=== PATIENT | male | born 1955 | race Caucasian/White ===

== ENCOUNTER 2019-02-19 22:13 | Emergency (ER) | payer OTHER ==
--- OUTSIDE RECORDS SUMMARY | 2019-02-19 22:15 | XMS REPORT ---
:1955 Author Organization [employer] Care Team Providers Name Role Phone Dena Walker Provider Role Unavailable Allergies, Adverse Reactions, Alerts Substance Reaction Event Type N.K.D.A. Info Not Available Non Drug Allergy Problems Problem Type Condition Code Onset Dates Condition Status Assessment History of CVA with residual I69.30 Active deficit Assessment Vitamin D deficiency E55.9 Active Assessment Irritable bowel syndrome with both K58.2 Active constipation and diarrhea Assessment Chronic obstructive pulmonary J44.9 Active disease, unspecified COPD type Assessment Hyperlipidemia, unspecified E78.5 Active hyperlipidemia type Problem Vitamin D deficiency E55.9 Active Assessment Hyperglycemia R73.9 Active Problem H/O heart artery stent Z95.5 Active Assessment H/O heart artery stent Z95.5 Active Problem Chronic obstructive pulmonary J44.9 Active disease, unspecified COPD type Problem History of permanent cardiac Z95.0 Active pacemaker placement Problem History of CVA with residual I69.30 Active deficit Problem Depression screening Z13.31 Active Problem Cardiovascular disease I25.10 Active Assessment Prostate cancer screening Z12.5 Active Assessment History of permanent cardiac Z95.0 Active pacemaker placement Problem Irritable bowel syndrome with both K58.2 Active constipation and diarrhea Assessment 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 Problem Stroke I63.9 Active Problem IBS (irritable bowel syndrome) K58.9 Active Problem Hyperlipidemia E78.5 Active Problem Hypertension I10 Active Problem Hemiparesis, unspecified G81.90 Active hemiparesis etiology, unspecified laterality Assessment Need for influenza vaccination Z23 Active Assessment Hypertension, unspecified type I10 Active Problem Hyperlipidemia, unspecified E78.5 Active hyperlipidemia type Problem Hyperglycemia R73.9 Active Problem Hypertension, unspecified type I10 Active Problem 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 Medications Medication Code Code Instructions Start End Status Dosage System Date Date Clopidogrel [facility] 46074583810 75 MG Orally Active 1 tablet Bisulfate Once a day Atorvastatin [facility] 56938467068 80 MG Orally Active 1 tablet in Calcium Once a day evening Amoxicillin-Pot [facility] 18271812703 875-125 MG Active 1 tablet Clavulanate Orally Twice a day x10 days Tessalon Len [facility] 78221171670 100 MG Orally Active 1 capsule Three times a as needed day Bentyl [facility] 53521628847 10 MG Orally Active 2 capsules Once a day Losartan [facility] 51028405062 100 mg Orally Active 1 tablet Potassium Once a day Isosorbide ND 33077284470 30 MG Orally Active 1 tablet in Mononitrate ER Once a day the morning Fluticasone-[place] ND 23891008919 250-50 MCG/DOSE July 02, Active 1 puff eterol Inhalation 2018 Twice a day Advair Diskus ND 95646237104 250-50 MCG/DOSE Dec 03, Active 1 puff Inhalation 2018 Twice a day ProAir HFA [facility] 79977334110 108 (90 Base) Active 2 puffs as MCG/ACT needed for Inhalation sob/wheezin every 4-6 hrs g Breo Ellipta [facility] 07764996793 100-25 MCG/INH Active 1 puff Inhalation Once a day Vitamin D3 [facility] 30368297073 1000 UNIT Active 1-2 tablets Orally Once a (otc) day Losartan ND 57415657754 100 MG Orally Active 1 tablet Potassium Once a day Metoprolol [facility] 70266290397 50 MG Orally Active 1 tablet Tartrate Twice a day with food Aspirin [facility] 94674555050 325 MG Orally Active 1 tablet Once a day Results No Known Results Immunizations Vaccine Administration Date FLUZONE HIGH DOSE OVER 65 Dec 03, 2018 Summary Purpose [employer] Submission
[2019-02-19] MEDS ORDERED: NA CHLORIDE 0.9% 1,000 ML ONE (22:44)
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
[2019-02-19 23:45] LABS: Basophils % 0.7 % (0-1.3); Lymphocytes % 9.5 % (15.3-44.8); MPV 8.4 fL (7.6-11.3)
[2019-02-19 23:57] LABS: Bilirubin Direct 0.2 mg/dL (0-0.2); Bilirubin Total 0.8 mg/dL (0.2-1.0); Protein, Total 7.8 g/dL (6.4-8.2)
[2019-02-20 00:33] LABS: Urine Blood NEGATIVE (NEG); Urine Glucose NEGATIVE (NEG); Urine Protein NEGATIVE (NEG)
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
[2019-02-20 01:16] VITALS: O2SAT 97
[2019-02-20 01:18] VITALS: BP 171/99
== END 2019-02-20 00:56 | disposition home or self-care (01) ==
LOC: ER 22:13
DX: S00.33XA Contusion of nose, initial encounter (principal); S32.029A Unspecified fracture of second lumbar vertebra, initial encounter for closed fracture; S32.019A Unspecified fracture of first lumbar vertebra, initial encounter for closed fracture; R04.0 Epistaxis; V43.52XA Car driver injured in collision with other type car in traffic accident, initial encounter; W22.11XA Striking against or struck by driver side automobile airbag, initial encounter; Y93.89 Activity, other specified; Y92.410 Unspecified street and highway as the place of occurrence of the external cause
CPT/HCPCS: 96361; 85025; 80048; 36415; 86900; 86850; 86901; 80076; 81003; 83690; 70450; 72125; 71260; 70486; 76377; 74177; 96360; 99284; Q9967; J7030

== ENCOUNTER 2022-05-13 11:15 | Emergency (ER) | payer MEDICARE ==
--- OUTSIDE RECORDS SUMMARY | 2022-05-13 11:19 | XMS REPORT | Continuity of Care Document ---
:1955 Author Organization [facility] Address [address] [place] [address] [address] [place] [address] Care Team Providers Name Role Phone Estefania Handy Attending Clinician Unavailable Dena Walker Attending Clinician Unavailable Lena Echeverria Attending Clinician Tran Attending Clinician Unavailable Rios Maurice Attending Clinician KAYLENE_Ananth Attending Clinician Unavailable FARNAZ GONZALEZ M.D. Attending Clinician Unavailable Tran Admitting Clinician Unavailable LUZ MARIA Admitting Clinician Unavailable Payers Payer Name Policy Type Policy Effective Date Expiration Date Sour ce Number [facility] [id number] 2021 (MEDICARE 00:00:00 REPLACEMENT HMO) MEDICARE NOVITAS MB [id number] 2010 [facility] - [facility] HUMANA MEDICARE C1 [id number] [facility] brayan - [facility] Problems Condition Condition Condition Status Onset Resolution Last Treating Co mments Source Name Details Category Date Date Treatment Clinician Date Neck pain Neck pain Problem Active [facility] Low back Low back Problem Active [facility] pain pain Physici ans Herniated Herniated Problem Active [facility] nucleus nucleus Physici pulposus pulposus ans of of lumbosacra lumbosacra l region l region Cervical Cervical Problem Active [facility] spine spine Physici degenerati degenerati an s on on Needs Need for Problem Common influenza influenza Spir it immunizati vaccinatio - [facility] on n [facility] [id number] History of Problem Co mmon permanent [facility] cardiac - [facility] pacemaker [facility] [id number] Vitamin D Problem Comm on deficiency Spirit - [facility] [id number] Chronic Problem Common obstructiv [facility] e - [facility] pulmonary [facility] unspecifie Medica l d COPD Center type [id number] H/O heart Problem Com mon artery [facility] stent - [facility] [id number] 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 [id number] Facial Problem Commo n 06 skin [facility] lesion - [facility] Stroke Stroke Problem Common [facility] Hemiparesi Problem Com mon s, Spirit unspecifie - [facility] Center unspecifie d laterality [id number] Eye exam Problem [place] [id number] normal [facility] [id number] Hyperglyce Problem Com mon annaebl [facility] [id number] Essential Problem Comm on hypertensi Spirit on [facility] [id number] Other Problem Common chronic [facility] pain [facility] [id number] Elevated Problem Comm on alkaline Spirit phosphatas - [facility] e level [facility] [id number] Hypermagne Problem Com mon semia [facility] [id number] Memory Problem Common deficit [facility] Allergies, Adverse Reactions, Alerts This patient has no known allergies or adverse reactions. Social History Social Habit Start Date Stop Date Quantity Comments Source History of Tobacco Use Co mmon [facility] Sex Assigned At Com mon [facility] Smoking Status Start Date Stop Date Source Former Smoker 2021-07-06 00:00:00 2021-07-06 00:00:00 [facility] - [facility] Medications Ordered Filled Start Stop Current Ordering Indication Dosage Frequency Signature Comments Components Source Medication Medication Date Date Medication? Clinician (SIG) Name Name Hydrocortis Hydrocortis No QD Hydrocorti one 2.5 % one 2.5 % 10-28 sone 2.5 % 00:00: 00 Hydrocortis Hydrocortis No QD Hydrocorti one 2.5 % one 2.5 % 10-28 sone 2.5 % 00:00: 00 Hydrocortis Hydrocortis No QD Hydrocorti one 2.5 % one 2.5 % 10-28 sone 2.5 % 00:00: 00 Hydrocortis Hydrocortis No QD Hydrocorti one 2.5 % one 2.5 % 10-28 sone 2.5 % 00:00: 00 Hydrocortis Hydrocortis No QD Hydrocorti one 2.5 % one 2.5 % 10-28 sone 2.5 % 00:00: 00 Hydrocortis Hydrocortis No QD Hydrocorti one 2.5 % one 2.5 % 10-28 sone 2.5 % 00:00: 00 Hydrocortis Hydrocortis No QD Hydrocorti one 2.5 % one 2.5 % 10-28 sone 2.5 % 00:00: 00 Hydrocortis Hydrocortis No QD Hydrocorti one 2.5 % one 2.5 % 10-28 sone 2.5 % 00:00: 00 Hydrocortis Hydrocortis No QD Hydrocorti one 2.5 % one 2.5 % 10-28 sone 2.5 % 00:00: 00 Hydrocortis Hydrocortis 0 2020- No Dena 1 Common one one 10-28 [facility] applicatio Spi rit 00:00: 00:00 n applied - [facility] 00 :00 to [facility] Plavix Plavix Yes Dena 1 tablet Comm on 820 [facility] 00:00: - [facility] 00 [facility] Plavix 75 Plavix 75 0 No 1{table QD Plavix 75 MG MG 8-20 t} MG 00:00: 00 Plavix 75 Plavix 75 2020-0 No 1{table QD Plavix 75 MG MG 8-20 t} MG 00:00: 00 Plavix 75 Plavix 75 2020-0 No 1{table QD Plavix 75 MG MG 8-20 t} MG 00:00: 00 Plavix 75 Plavix 75 2020-0 No 1{table QD Plavix 75 MG MG 8-20 t} MG 00:00: 00 Plavix 75 Plavix 75 2020-0 No 1{table QD Plavix 75 MG MG 8-20 t} MG 00:00: 00 Plavix 75 Plavix 75 2020-0 No 1{table QD Plavix 75 MG MG 8-20 t} MG 00:00: 00 Plavix 75 Plavix 75 2020-0 No 1{table QD Plavix 75 MG MG 8-20 t} MG 00:00: 00 Plavix 75 Plavix 75 2020-0 No 1{table QD Plavix 75 MG MG 8-20 t} MG 00:00: 00 Plavix 75 Plavix 75 2020-0 No 1{table QD Plavix 75 MG MG 8-20 t} MG 00:00: 00 tiZANidine tiZANidine 2019-0 Yes FARNAZ Q0.5D TAKE 1 UT HCl - 6 MG HCl - 6 MG 4-21 CUPIC M.D. CAPSULE Physici Oral Oral 00:00: TWICE ans Capsule Capsule 00 DAILY NEEDED. Tessalon Tessalon 2019-0 2020- No Dena 1 capsule Common Perles Perles 3-23 12-18 [facility] as needed [facility] 00:00: 00:00 - [facility] 00 :00 [facility] methylPREDN methylPREDN 2019-0 Yes FARNAZ TAKE UT ISolone 4 ISolone 4 1-16 CUPIC M.D. DIRECTED Physici MG Oral MG Oral 00:00: FOR 6 DAYS a ns Tablet Tablet 00 Therapy Therapy Pack Pack Nabumetone Nabumetone 2019-0 Yes FARNAZ TAKE ONE UT 750 MG Oral 750 MG Oral 1-16 CUPIC M.D. TABLET Physici Tablet Tablet 00:00: TWICE A ans 00 DAY WITH FOOD AFTER MEDROL FINISHED Baclofen 10 Baclofen 10 2019-0 Yes FARNAZ TAKE 1 UT MG Oral MG Oral 1-16 CUPIC M.D. TABLET BY Physici Tablet Tablet 00:00: MOUTH ans 00 TWICE DAILY Amlodipine Amlodipine 2020-0 Yes Dena 1 tablet Common Besylate Besylate 1-15 [facility] Sp brayan 00:00: - [facility] 00 [facility] Advair Advair 2018-02 Yes Dena 1 puff Common Diskus Diskus 0-07 [facility] 00:00: - [facility] 00 [facility] Advair Advair 2018-02 No 1{puff} BID Advair Diskus Diskus 0-07 Diskus 250-50 250-50 00:00: 250-50 MCG/DOSE MCG/DOSE 00 MCG/DOSE Advair Advair 2018-02 No 1{puff} BID Advair Diskus Diskus 0-07 Diskus 250-50 250-50 00:00: 250-50 MCG/DOSE MCG/DOSE 00 MCG/DOSE Advair Advair 2018-02 No 1{puff} BID Advair Diskus Diskus 0-07 Diskus 250-50 250-50 00:00: 250-50 MCG/DOSE MCG/DOSE 00 MCG/DOSE Advair Advair 2018-02 No 1{puff} BID Advair Diskus Diskus 0-07 Diskus 250-50 250-50 00:00: 250-50 MCG/DOSE MCG/DOSE 00 MCG/DOSE Advair Advair 2018-02 No 1{puff} BID Advair Diskus Diskus 0-07 Diskus 250-50 250-50 00:00: 250-50 MCG/DOSE MCG/DOSE 00 MCG/DOSE Advair Advair 2018-02 No 1{puff} BID Advair Diskus Diskus 0-07 Diskus 250-50 250-50 00:00: 250-50 MCG/DOSE MCG/DOSE 00 MCG/DOSE Advair Advair 2018-02 No 1{puff} BID Advair Diskus Diskus 0-07 Diskus 250-50 250-50 00:00: 250-50 MCG/DOSE MCG/DOSE 00 MCG/DOSE Advair Advair 2018-02 No 1{puff} BID Advair Diskus Diskus 0-07 Diskus 250-50 250-50 00:00: 250-50 MCG/DOSE MCG/DOSE 00 MCG/DOSE Advair Advair 2018-02 No 1{puff} BID Advair Diskus Diskus 0-07 Diskus 250-50 250-50 00:00: 250-50 MCG/DOSE MCG/DOSE 00 MCG/DOSE Fluticasone Fluticasone 2019-0 Yes Dena 1 puff Common -Salmeterol -Salmeterol 5-06 [facility] 00:00: - [facility] 00 [facility] Fluticasone Fluticasone 2019-0 No 1{puff} BID Fluticason -Salmeterol -Salmeterol 5-06 e-Salmeter 250-50 250-50 00:00: ol 250-50 MCG/DOSE MCG/DOSE 00 MCG/DOSE Fluticasone Fluticasone 2019-0 No 1{puff} BID Fluticason -Salmeterol -Salmeterol 5-06 e-Salmeter 250-50 250-50 00:00: ol 250-50 MCG/DOSE MCG/DOSE 00 MCG/DOSE Fluticasone Fluticasone 2019-0 No 1{puff} BID Fluticason -Salmeterol -Salmeterol 5-06 e-Salmeter 250-50 250-50 00:00: ol 250-50 MCG/DOSE MCG/DOSE 00 MCG/DOSE Fluticasone Fluticasone 2019-0 No 1{puff} BID Fluticason -Salmeterol -Salmeterol 5-06 e-Salmeter 250-50 250-50 00:00: ol 250-50 MCG/DOSE MCG/DOSE 00 MCG/DOSE Fluticasone Fluticasone 2019-0 No 1{puff} BID Fluticason -Salmeterol -Salmeterol 5-06 e-Salmeter 250-50 250-50 00:00: ol 250-50 MCG/DOSE MCG/DOSE 00 MCG/DOSE Fluticasone Fluticasone 2019-0 No 1{puff} BID Fluticason -Salmeterol -Salmeterol 5-06 e-Salmeter 250-50 250-50 00:00: ol 250-50 MCG/DOSE MCG/DOSE 00 MCG/DOSE Fluticasone Fluticasone 2019-0 No 1{puff} BID Fluticason -Salmeterol -Salmeterol 5-06 e-Salmeter 250-50 250-50 00:00: ol 250-50 MCG/DOSE MCG/DOSE 00 MCG/DOSE Fluticasone Fluticasone 2019-0 No 1{puff} BID Fluticason -Salmeterol -Salmeterol 5-06 e-Salmeter 250-50 250-50 00:00: ol 250-50 MCG/DOSE MCG/DOSE 00 MCG/DOSE Fluticasone Fluticasone No 1{puff} BID Fluticason -Salmeterol -Salmeterol 5-06 e-Salmeter 250-50 250-50 00:00: ol 250-50 MCG/DOSE MCG/DOSE 00 MCG/DOSE Losartan Losartan Yes Dena 1 tablet Co mmon Potassium Potassium [facility] Losartan Losartan Yes Dena 1 tablet Co mmon Potassium Potassium Mill[facility] Aspirin Aspirin Yes Dena 1 tablet Comm on [facility] ProAir HFA ProAir HFA Yes Dena 2 puffs as Common [facility] needed for Spir it sob/wheezi - [facility] ng [facility] Metoprolol Metoprolol Yes Dena 1 tablet Common Tartrate Tartrate Millender with food [facility] Amoxicillin Amoxicillin Yes Dena 1 tablet Common -Pot -Pot Mill[facility] Clavulanate Clavulanate [facility] Vitamin D3 Vitamin D3 Yes Dena 1-2 Co mmon Mill[facility] tablets [facility] (otc) [facility] Clopidogrel Clopidogrel Yes Dena 1 tablet Common [facility] Breo Breo Yes Dena 1 puff Common Ellipta Ellipta [facility] Sp[facility] it [facility] Bentyl Bentyl Yes Dena 2 capsules [facility] Isosorbide Isosorbide Yes Dena 1 tablet Common Mononitrate Mononitrate [facility] in the Spirit ER ER morning [facility] Atorvastati Atorvastati Yes Dena 1 tablet Common n Calcium n Calcium Millender in evening [facility] Benzonatate Benzonatate No Benzonatat 100 MG 100 MG e 100 MG amLODIPine amLODIPine No 1{table amLODIPine Besylate 5 Besylate 5 t} Besylate 5 MG MG MG Clopidogrel Clopidogrel No 1{table QD Clopidogre Bisulfate Bisulfate t} l 75 MG 75 MG Bisulfate 75 MG Vitamin D3 Vitamin D3 No QD Vitamin D3 1000 UNIT 1000 UNIT 1000 UNIT Amoxicillin Amoxicillin No 1{table Amoxicilli -Pot -Pot t} n-Pot Clavulanate Clavulanate Clavulanat 875-125 MG 875-125 MG e 875-125 MG Bentyl 10 Bentyl 10 No 2{capsu QD Bentyl 10 MG MG les} MG Symbicort Symbicort No Symbicort 80-4.5 80-4.5 80-4.5 MCG/ACT MCG/ACT MCG/ACT amLODIPine amLODIPine No 1{table QD amLODIPine Besylate Besylate t} Besylate 2.5 MG 2.5 MG 2.5 MG Clopidogrel Clopidogrel No Clopidogre Bisulfate Bisulfate l 75 MG 75 MG Bisulfate 75 MG Aspirin 325 Aspirin 325 No 1{table QD Aspirin MG MG t} 325 MG Losartan Losartan No Losartan Potassium Potassium Potassium 100 mg 100 mg 100 mg Tessalon Tessalon No 1{capsu TID Tessalon Perles 100 Perles 100 le_as_n Perles 100 MG MG eeded} MG Dicyclomine Dicyclomine No 2{capsu TID Dicyclomin HCl 10 MG HCl 10 MG les} e HCl 10 MG Atorvastati Atorvastati No QD Atorvastat n Calcium n Calcium in Calcium 80 MG 80 MG 80 MG Metoprolol Metoprolol No Metoprolol Tartrate 50 Tartrate 50 Tartrate MG MG 50 MG ProAir HFA ProAir HFA No ProAir HFA 108 (90 108 (90 108 (90 Base) Base) Base) MCG/ACT MCG/ACT MCG/ACT Breo Breo No 1{puff} QD Breo Ellipta Ellipta Ellipta 100-25 100-25 100-25 MCG/INH MCG/INH MCG/INH Isosorbide Isosorbide No Isosorbide Mononitrate Mononitrate Mononitrat ER 30 MG ER 30 MG e ER 30 MG Benzonatate Benzonatate No Benzonatat 100 MG 100 MG e 100 MG amLODIPine amLODIPine No 1{table amLODIPine Besylate 5 Besylate 5 t} Besylate 5 MG MG MG Clopidogrel Clopidogrel No 1{table QD Clopidogre Bisulfate Bisulfate t} l 75 MG 75 MG Bisulfate 75 MG Vitamin D3 Vitamin D3 No QD Vitamin D3 1000 UNIT 1000 UNIT 1000 UNIT Amoxicillin Amoxicillin No 1{table Amoxicilli -Pot -Pot t} n-Pot Clavulanate Clavulanate Clavulanat 875-125 MG 875-125 MG e 875-125 MG Bentyl 10 Bentyl 10 No 2{capsu QD Bentyl 10 MG MG les} MG Symbicort Symbicort No Symbicort 80-4.5 80-4.5 80-4.5 MCG/ACT MCG/ACT MCG/ACT amLODIPine amLODIPine No 1{table QD amLODIPine Besylate Besylate t} Besylate 2.5 MG 2.5 MG 2.5 MG Clopidogrel Clopidogrel No Clopidogre Bisulfate Bisulfate l 75 MG 75 MG Bisulfate 75 MG Aspirin 325 Aspirin 325 No 1{table QD Aspirin MG MG t} 325 MG Losartan Losartan No Losartan Potassium Potassium Potassium 100 mg 100 mg 100 mg Tessalon Tessalon No 1{capsu TID Tessalon Perles 100 Perles 100 le_as_n Perles 100 MG MG eeded} MG Dicyclomine Dicyclomine No 2{capsu TID Dicyclomin HCl 10 MG HCl 10 MG les} e HCl 10 MG Atorvastati Atorvastati No QD Atorvastat n Calcium n Calcium in Calcium 80 MG 80 MG 80 MG Metoprolol Metoprolol No Metoprolol Tartrate 50 Tartrate 50 Tartrate MG MG 50 MG ProAir HFA ProAir HFA No ProAir HFA 108 (90 108 (90 108 (90 Base) Base) Base) MCG/ACT MCG/ACT MCG/ACT Breo Breo No 1{puff} QD Breo Ellipta Ellipta Ellipta 100-25 100-25 100-25 MCG/INH MCG/INH MCG/INH Isosorbide Isosorbide No Isosorbide Mononitrate Mononitrate Mononitrat ER 30 MG ER 30 MG e ER 30 MG Benzonatate Benzonatate No Benzonatat 100 MG 100 MG e 100 MG amLODIPine amLODIPine No 1{table amLODIPine Besylate 5 Besylate 5 t} Besylate 5 MG MG MG Clopidogrel Clopidogrel No 1{table QD Clopidogre Bisulfate Bisulfate t} l 75 MG 75 MG Bisulfate 75 MG Vitamin D3 Vitamin D3 No QD Vitamin D3 1000 UNIT 1000 UNIT 1000 UNIT Amoxicillin Amoxicillin No 1{table Amoxicilli -Pot -Pot t} n-Pot Clavulanate Clavulanate Clavulanat 875-125 MG 875-125 MG e 875-125 MG Bentyl 10 Bentyl 10 No 2{capsu QD Bentyl 10 MG MG les} MG Symbicort Symbicort No Symbicort 80-4.5 80-4.5 80-4.5 MCG/ACT MCG/ACT MCG/ACT amLODIPine amLODIPine No 1{table QD amLODIPine Besylate Besylate t} Besylate 2.5 MG 2.5 MG 2.5 MG Clopidogrel Clopidogrel No Clopidogre Bisulfate Bisulfate l 75 MG 75 MG Bisulfate 75 MG Aspirin 325 Aspirin 325 No 1{table QD Aspirin MG MG t} 325 MG Losartan Losartan No Losartan Potassium Potassium Potassium 100 mg 100 mg 100 mg Tessalon Tessalon No 1{capsu TID Tessalon Perles 100 Perles 100 le_as_n Perles 100 MG MG eeded} MG Dicyclomine Dicyclomine No 2{capsu TID Dicyclomin HCl 10 MG HCl 10 MG les} e HCl 10 MG Atorvastati Atorvastati No QD Atorvastat n Calcium n Calcium in Calcium 80 MG 80 MG 80 MG Metoprolol Metoprolol No Metoprolol Tartrate 50 Tartrate 50 Tartrate MG MG 50 MG ProAir HFA ProAir HFA No ProAir HFA 108 (90 108 (90 108 (90 Base) Base) Base) MCG/ACT MCG/ACT MCG/ACT Breo Breo No 1{puff} QD Breo Ellipta Ellipta Ellipta 100-25 100-25 100-25 MCG/INH MCG/INH MCG/INH Isosorbide Isosorbide No Isosorbide Mononitrate Mononitrate Mononitrat ER 30 MG ER 30 MG e ER 30 MG Benzonatate Benzonatate No Benzonatat 100 MG 100 MG e 100 MG amLODIPine amLODIPine No 1{table amLODIPine Besylate 5 Besylate 5 t} Besylate 5 MG MG MG Clopidogrel Clopidogrel No 1{table QD Clopidogre Bisulfate Bisulfate t} l 75 MG 75 MG Bisulfate 75 MG Vitamin D3 Vitamin D3 No QD Vitamin D3 1000 UNIT 1000 UNIT 1000 UNIT Amoxicillin Amoxicillin No 1{table Amoxicilli -Pot -Pot t} n-Pot Clavulanate Clavulanate Clavulanat 875-125 MG 875-125 MG e 875-125 MG Bentyl 10 Bentyl 10 No 2{capsu QD Bentyl 10 MG MG les} MG Symbicort Symbicort No Symbicort 80-4.5 80-4.5 80-4.5 MCG/ACT MCG/ACT MCG/ACT amLODIPine amLODIPine No 1{table QD amLODIPine Besylate Besylate t} Besylate 2.5 MG 2.5 MG 2.5 MG Clopidogrel Clopidogrel No Clopidogre Bisulfate Bisulfate l 75 MG 75 MG Bisulfate 75 MG Aspirin 325 Aspirin 325 No 1{table QD Aspirin MG MG t} 325 MG Losartan Losartan No Losartan Potassium Potassium Potassium 100 mg 100 mg 100 mg Tessalon Tessalon No 1{capsu TID Tessalon Perles 100 Perles 100 le_as_n Perles 100 MG MG eeded} MG Dicyclomine Dicyclomine No 2{capsu TID Dicyclomin HCl 10 MG HCl 10 MG les} e HCl 10 MG Atorvastati Atorvastati No QD Atorvastat n Calcium n Calcium in Calcium 80 MG 80 MG 80 MG Metoprolol Metoprolol No Metoprolol Tartrate 50 Tartrate 50 Tartrate MG MG 50 MG ProAir HFA ProAir HFA No ProAir HFA 108 (90 108 (90 108 (90 Base) Base) Base) MCG/ACT MCG/ACT MCG/ACT Breo Breo No 1{puff} QD Breo Ellipta Ellipta Ellipta 100-25 100-25 100-25 MCG/INH MCG/INH MCG/INH Isosorbide Isosorbide No Isosorbide Mononitrate Mononitrate Mononitrat ER 30 MG ER 30 MG e ER 30 MG Benzonatate Benzonatate No Benzonatat 100 MG 100 MG e 100 MG amLODIPine amLODIPine No 1{table amLODIPine Besylate 5 Besylate 5 t} Besylate 5 MG MG MG Clopidogrel Clopidogrel No 1{table QD Clopidogre Bisulfate Bisulfate t} l 75 MG 75 MG Bisulfate 75 MG Vitamin D3 Vitamin D3 No QD Vitamin D3 1000 UNIT 1000 UNIT 1000 UNIT Amoxicillin Amoxicillin No 1{table Amoxicilli -Pot -Pot t} n-Pot Clavulanate Clavulanate Clavulanat 875-125 MG 875-125 MG e 875-125 MG Bentyl 10 Bentyl 10 No 2{capsu QD Bentyl 10 MG MG les} MG Symbicort Symbicort No Symbicort 80-4.5 80-4.5 80-4.5 MCG/ACT MCG/ACT MCG/ACT amLODIPine amLODIPine No 1{table QD amLODIPine Besylate Besylate t} Besylate 2.5 MG 2.5 MG 2.5 MG Clopidogrel Clopidogrel No Clopidogre Bisulfate Bisulfate l 75 MG 75 MG Bisulfate 75 MG Aspirin 325 Aspirin 325 No 1{table QD Aspirin MG MG t} 325 MG Losartan Losartan No Losartan Potassium Potassium Potassium 100 mg 100 mg 100 mg Tessalon Tessalon No 1{capsu TID Tessalon Perles 100 Perles 100 le_as_n Perles 100 MG MG eeded} MG Dicyclomine Dicyclomine No 2{capsu TID Dicyclomin HCl 10 MG HCl 10 MG les} e HCl 10 MG Atorvastati Atorvastati No QD Atorvastat n Calcium n Calcium in Calcium 80 MG 80 MG 80 MG Metoprolol Metoprolol No Metoprolol Tartrate 50 Tartrate 50 Tartrate MG MG 50 MG ProAir HFA ProAir HFA No ProAir HFA 108 (90 108 (90 108 (90 Base) Base) Base) MCG/ACT MCG/ACT MCG/ACT Breo Breo No 1{puff} QD Breo Ellipta Ellipta Ellipta 100-25 100-25 100-25 MCG/INH MCG/INH MCG/INH Isosorbide Isosorbide No Isosorbide Mononitrate Mononitrate Mononitrat ER 30 MG ER 30 MG e ER 30 MG Clopidogrel Clopidogrel No 1{table QD Clopidogre Bisulfate Bisulfate t} l 75 MG 75 MG Bisulfate 75 MG Atorvastati Atorvastati No QD Atorvastat n Calcium n Calcium in Calcium 80 MG 80 MG 80 MG amLODIPine amLODIPine No 1{table QD amLODIPine Besylate Besylate t} Besylate 2.5 MG 2.5 MG 2.5 MG Vitamin D3 Vitamin D3 No QD Vitamin D3 1000 UNIT 1000 UNIT 1000 UNIT Symbicort Symbicort No Symbicort 80-4.5 80-4.5 80-4.5 MCG/ACT MCG/ACT MCG/ACT Bentyl 10 Bentyl 10 No 2{capsu QD Bentyl 10 MG MG les} MG Tessalon Tessalon No 1{capsu TID Tessalon Perles 100 Perles 100 le_as_n Perles 100 MG MG eeded} MG Isosorbide Isosorbide No Isosorbide Mononitrate Mononitrate Mononitrat ER 30 MG ER 30 MG e ER 30 MG Losartan Losartan No Losartan Potassium Potassium Potassium 100 mg 100 mg 100 mg Amoxicillin Amoxicillin No 1{table Amoxicilli -Pot -Pot t} n-Pot Clavulanate Clavulanate Clavulanat 875-125 MG 875-125 MG e 875-125 MG Aspirin 325 Aspirin 325 No 1{table QD Aspirin MG MG t} 325 MG ProAir HFA ProAir HFA No ProAir HFA 108 (90 108 (90 108 (90 Base) Base) Base) MCG/ACT MCG/ACT MCG/ACT amLODIPine amLODIPine No 1{table amLODIPine Besylate 5 Besylate 5 t} Besylate 5 MG MG MG Metoprolol Metoprolol No Metoprolol Tartrate 50 Tartrate 50 Tartrate MG MG 50 MG Benzonatate Benzonatate No Benzonatat 100 MG 100 MG e 100 MG Dicyclomine Dicyclomine No 2{capsu TID Dicyclomin HCl 10 MG HCl 10 MG les} e HCl 10 MG Clopidogrel Clopidogrel No Clopidogre Bisulfate Bisulfate l 75 MG 75 MG Bisulfate 75 MG Breo Breo No 1{puff} QD Breo Ellipta Ellipta Ellipta 100-25 100-25 100-25 MCG/INH MCG/INH MCG/INH Clopidogrel Clopidogrel No 1{table QD Clopidogre Bisulfate Bisulfate t} l 75 MG 75 MG Bisulfate 75 MG Atorvastati Atorvastati No QD Atorvastat n Calcium n Calcium in Calcium 80 MG 80 MG 80 MG amLODIPine amLODIPine No 1{table QD amLODIPine Besylate Besylate t} Besylate 2.5 MG 2.5 MG 2.5 MG Vitamin D3 Vitamin D3 No QD Vitamin D3 1000 UNIT 1000 UNIT 1000 UNIT Symbicort Symbicort No Symbicort 80-4.5 80-4.5 80-4.5 MCG/ACT MCG/ACT MCG/ACT Bentyl 10 Bentyl 10 No 2{capsu QD Bentyl 10 MG MG les} MG Tessalon Tessalon No 1{capsu TID Tessalon Perles 100 Perles 100 le_as_n Perles 100 MG MG eeded} MG Isosorbide Isosorbide No Isosorbide Mononitrate Mononitrate Mononitrat ER 30 MG ER 30 MG e ER 30 MG Losartan Losartan No Losartan Potassium Potassium Potassium 100 mg 100 mg 100 mg Amoxicillin Amoxicillin No 1{table Amoxicilli -Pot -Pot t} n-Pot Clavulanate Clavulanate Clavulanat 875-125 MG 875-125 MG e 875-125 MG Aspirin 325 Aspirin 325 No 1{table QD Aspirin MG MG t} 325 MG ProAir HFA ProAir HFA No ProAir HFA 108 (90 108 (90 108 (90 Base) Base) Base) MCG/ACT MCG/ACT MCG/ACT amLODIPine amLODIPine No 1{table amLODIPine Besylate 5 Besylate 5 t} Besylate 5 MG MG MG Metoprolol Metoprolol No Metoprolol Tartrate 50 Tartrate 50 Tartrate MG MG 50 MG Benzonatate Benzonatate No Benzonatat 100 MG 100 MG e 100 MG Dicyclomine Dicyclomine No 2{capsu TID Dicyclomin HCl 10 MG HCl 10 MG les} e HCl 10 MG Clopidogrel Clopidogrel No Clopidogre Bisulfate Bisulfate l 75 MG 75 MG Bisulfate 75 MG Breo Breo No 1{puff} QD Breo Ellipta Ellipta Ellipta 100-25 100-25 100-25 MCG/INH MCG/INH MCG/INH Losartan Losartan No Losartan Potassium Potassium Potassium 100 mg 100 mg 100 mg Breo Breo No 1{puff} QD Breo Ellipta Ellipta Ellipta 100-25 100-25 100-25 MCG/INH MCG/INH MCG/INH Amoxicillin Amoxicillin No 1{table Amoxicilli -Pot -Pot t} n-Pot Clavulanate Clavulanate Clavulanat 875-125 MG 875-125 MG e 875-125 MG Tessalon Tessalon No 1{capsu TID Tessalon Perles 100 Perles 100 le_as_n Perles 100 MG MG eeded} MG Benzonatate Benzonatate No Benzonatat 100 MG 100 MG e 100 MG Atorvastati Atorvastati No Atorvastat n Calcium n Calcium in Calcium 80 MG 80 MG 80 MG Vitamin D3 Vitamin D3 No QD Vitamin D3 1000 UNIT 1000 UNIT 1000 UNIT Metoprolol Metoprolol No Metoprolol Tartrate 50 Tartrate 50 Tartrate MG MG 50 MG amLODIPine amLODIPine No 1{table QD amLODIPine Besylate Besylate t} Besylate 2.5 MG 2.5 MG 2.5 MG Bentyl 10 Bentyl 10 No 2{capsu QD Bentyl 10 MG MG les} MG Isosorbide Isosorbide No Isosorbide Mononitrate Mononitrate Mononitrat ER 30 MG ER 30 MG e ER 30 MG Clopidogrel Clopidogrel No Clopidogre Bisulfate Bisulfate l 75 MG 75 MG Bisulfate 75 MG ProAir HFA ProAir HFA No ProAir HFA 108 ([phone] (90 108 (90 Base) Base) Base) MCG/ACT MCG/ACT MCG/ACT Aspirin 325 Aspirin 325 No 1{table QD Aspirin MG MG t} 325 MG Symbicort Symbicort No Symbicort 80-4.5 80-4.5 80-4.5 MCG/ACT MCG/ACT MCG/ACT amLODIPine amLODIPine No 1{table amLODIPine Besylate 5 Besylate 5 t} Besylate 5 MG MG MG Dicyclomine Dicyclomine No 2{capsu TID Dicyclomin HCl 10 MG HCl 10 MG les} e HCl 10 MG Losartan Losartan No Losartan Potassium Potassium Potassium 100 mg 100 mg 100 mg Breo Breo No 1{puff} QD Breo Ellipta Ellipta Ellipta 100-25 100-25 100-25 MCG/INH MCG/INH MCG/INH Amoxicillin Amoxicillin No 1{table Amoxicilli -Pot -Pot t} n-Pot Clavulanate Clavulanate Clavulanat 875-125 MG 875-125 MG e 875-125 MG Tessalon Tessalon No 1{capsu TID Tessalon Perles 100 Perles 100 le_as_n Perles 100 MG MG eeded} MG Benzonatate Benzonatate No Benzonatat 100 MG 100 MG e 100 MG Atorvastati Atorvastati No Atorvastat n Calcium n Calcium in Calcium 80 MG 80 MG 80 MG Vitamin D3 Vitamin D3 No QD Vitamin D3 1000 UNIT 1000 UNIT 1000 UNIT Metoprolol Metoprolol No Metoprolol Tartrate 50 Tartrate 50 Tartrate MG MG 50 MG amLODIPine amLODIPine No 1{table QD amLODIPine Besylate Besylate t} Besylate 2.5 MG 2.5 MG 2.5 MG Bentyl 10 Bentyl 10 No 2{capsu QD Bentyl 10 MG MG les} MG Isosorbide Isosorbide No Isosorbide Mononitrate Mononitrate Mononitrat ER 30 MG ER 30 MG e ER 30 MG Clopidogrel Clopidogrel No Clopidogre Bisulfate Bisulfate l 75 MG 75 MG Bisulfate 75 MG ProAir HFA ProAir HFA No ProAir HFA 108 (90 108 (90 108 (90 Base) Base) Base) MCG/ACT MCG/ACT MCG/ACT Aspirin 325 Aspirin 325 No 1{table QD Aspirin MG MG t} 325 MG Symbicort Symbicort No Symbicort 80-4.5 80-4.5 80-4.5 MCG/ACT MCG/ACT MCG/ACT amLODIPine amLODIPine No 1{table amLODIPine Besylate 5 Besylate 5 t} Besylate 5 MG MG MG Dicyclomine Dicyclomine No 2{capsu TID Dicyclomin HCl 10 MG HCl 10 MG les} e HCl 10 MG Immunizations Ordered Immunization Filled Immunization Date Status Commen ts Source Name Name Flucelvax - single Flucelvax - single 2021-12-30 Completed [facility] dose syringe dose syringe 11:40:00 - [facility] Flucelvax - single Flucelvax - single 2021-12-30 Completed [facility] dose syringe dose syringe 11:40:00 - [facility] FLUZONE HIGH DOSE FLUZONE HIGH DOSE 2018-12-03 Completed [facility] OVER 65 OVER 65 09:07:00 - [facility] FLUZONE HIGH DOSE FLUZONE HIGH DOSE 2018-12-03 Completed [facility] OVER 65 OVER 65 09:07:00 - [facility] FLUZONE HIGH DOSE FLUZONE HIGH DOSE 2018-12-03 Completed [facility] OVER 65 OVER 65 09:07:00 - [facility] FLUZONE HIGH DOSE FLUZONE HIGH DOSE 2018-12-03 Completed [facility] OVER 65 OVER 65 09:07:00 - [facility] FLUZONE HIGH DOSE FLUZONE HIGH DOSE 2018-12-03 Completed [facility] OVER 65 OVER 65 09:07:00 - [facility] FLUZONE HIGH DOSE FLUZONE HIGH DOSE 2018-12-03 Completed [facility] OVER 65 OVER 65 09:07:00 - [facility] FLUZONE HIGH DOSE FLUZONE HIGH DOSE 2018-12-03 Completed [facility] OVER 65 OVER 65 09:07:00 - [facility] FLUZONE HIGH DOSE FLUZONE HIGH DOSE 2018-12-03 Completed [facility] OVER 65 OVER 65 09:07:00 - [facility] FLUZONE HIGH DOSE FLUZONE HIGH DOSE 2018-12-03 Completed [facility] OVER 65 OVER 65 09:07:00 - [facility] FLUZONE HIGH DOSE FLUZONE HIGH DOSE 2018-12-03 Completed [facility] OVER 65 OVER 65 00:00:00 - [facility] Vital Signs Vital Name Observation Time Observation Value Comments Source height 2021-07-06 14:00:00 71 [in_i] [facility] weight 2021-07-06 14:00:00 187.2 [lb_av] [facility] temperature 2021-07-06 14:00:00 97.1 [degF] [facility] bmi 2021-07-06 14:00:00 26.11 kg/m2 [facility] oximetry 2021-07-06 14:00:00 96 % [facility] respiratory rate 2021-07-06 14:00:00 18 /min Comm on [facility] blood pressure 2021-07-06 14:00:00 150 mm[Hg] [facility] - systolic [facility] blood pressure 2021-07-06 14:00:00 80 mm[Hg] [facility] [place] [facility] height 2021-07-06 13:00:00 71 [in_i] [facility] weight 2021-07-06 13:00:00 187.2 [lb_av] [facility] temperature 2021-07-06 13:00:00 98.2 [degF] [facility] bmi 2021-07-06 13:00:00 26.11 kg/m2 [facility] oximetry 2021-07-06 13:00:00 96 % [facility] respiratory rate 2021-07-06 13:00:00 18 /min Comm on [facility] blood pressure 2021-07-06 13:00:00 152 mm[Hg] Common [facility] - systolic [facility] blood pressure 2021-07-06 13:00:00 83 mm[Hg] Common [facility] - diastolic [facility] Procedures Procedure Date / Time Performed Performing Clinician Sourc e CT Spine lumbar wo contrast 2019-06-18 00:00:00 [facility] [id number] Physical Therapy 2019-03-14 00:00:[facility] [U] XRAY SPINE CERVICAL 2 OR 2019-03-14 00:00:00 [facility] 3 VWS [id number] [U] XRAY SPINE LUMBOSACRAL 2 2019-03-14 00:00:00 [facility] OR 3 [id number] [id number] Plan of Care Planned Activity Planned Date Details Comments Source Diagnostic Test Pending 2019-06-18 00:00:00 CT Spine lumbar wo [facility] contrast 45486 [code = 03760-2] Encounters Start End Encounter Admission Attending Care Care Encounter Source Date/Time Date/Time Type Type Clinicians Facility Department ID 2021-05-21 Outpatient Handy, Na STLMLC STLMLC [id number] Common 09:08:00 [facility] 2021-05-19 Outpatient Hanyd, Na STLMLC STLMLC [id number] 2 Common 08:50:01 [facility] 2021-03-24 Outpatient Handy, Na STLMLC STLMLC [id number] 2 Common 13:45:16 [id number] [facility] 2021-03-24 Outpatient Handy, Na STLMLC STLMLC [id number] 2 Common 12:35:23 [id number] [facility] 2021-03-24 Outpatient Handy, Na STLMLC STLMLC [id number] 2 Common 12:34:09 [id number] [facility] 2021-03-24 Outpatient Handy, Na STLMLC STLMLC [id number] 2 Common 12:27:36 [id number] [facility] 2021-03-24 Outpatient Handy, Na STLMLC STLMLC [id number] 2 Common 12:27:03 [id number] [facility] 2021-03-24 Outpatient Handy, Na STLMLC STLMLC [id number] 2 Common 12:21:38 [id number] [facility] 2021-03-24 Outpatient Handy, Na STLMLC STLMLC [id number] 2 Common 12:15:30 [id number] [facility] 2021-03-24 Outpatient Millender, STLMLC STLMLC [id number] Common 11:42:14 Dena [id number] [facility] 2021-03-24 Outpatient Millender, STLMLC STLMLC [id number] Common 11:41:41 Dena [id number] [facility] 2021-03-24 Outpatient Millender, STLMLC STLMLC [id number] Common 11:00:36 Dena [id number] [facility] 2022-03-21 2022-03-21 (TEL) STLMLC STLMLC [id number] Co mmon 00:00:00 00:00:00 [facility] 2022-03-04 2022-03-04 TREV Paredes [id number] CLAC [id number] [facility] 15:30:00 16:30:00 [facility] [id number] [id number] 2022-02-22 2022-02-22 Outpatient Williams_V DMG DMG [id number] [facility] 00:00:00 00:00:00 [id number] 2022-02-18 2022-02-18 Outpatient Williams_V DMG DMG [id number] [facility] 00:00:00 00:00:00 [id number] [facility] 2021-12-30 2021-12-30 (INJ) STLMLC STLMLC [id number] Co mmon 00:00:00 00:00:00 Injection Spir [facility] 2021-11-18 2021-11-18 CAV Tomgillian [id number]. [id number]. [facility] [id number] [facility] 13:30:00 14:30:00 Kaylene [id number] [id number] 2021-11-17 2021-11-17 Outpatient OWENS_T DMG [facility] [id number] [facility] 00:00:00 00:00:00 [id number] [facility] 2021-09-10 2021-09-10 Outpatient DMG [facility] [id number] [facility] 03:45:00 03:45:00 [id number] [facility] 2021-08-12 2021-08-12 (TEL) STLMLC STLMLC [id number] Co mmon 00:00:00 00:00:00 [facility] 2021-07-29 2021-07-29 (TEL) STLMLC STLMLC [id number] Co mmon 00:00:00 00:00:00 [facility] 2021-07-06 2021-07-06 OFFICE STLMLC STLMLC [id number] Co mmon 00:00:00 00:00:00 VISIT EST Spir it PT LEVEL 3 - [facility] 2021-07-06 2021-07-06 SUB ANNUAL STLMLC STLMLC [id number] Common 00:00:00 00:00:00 MCR [facility] VISIT [facility] 2021-07-06 2021-07-06 (TEL) STLMLC STLMLC [id number] Co mmon 00:00:00 00:00:00 [facility] 2021-05-18 2021-05-18 (TEL) STLMLC STLMLC [id number] Co mmon 00:00:00 00:00:00 [facility] 2021-04-30 2021-04-30 Outpatient DMG [facility] [place] [id number] [facility] 04:30:00 04:30:00 [facility] 2021-04-22 2021-04-22 Outpatient DMG [facility] [id number] [facility] 08:01:00 08:01:00 [id number] [facility] 2020-10-20 2020-10-20 (TEL) STLMLC STLMLC [id number] Co mmon 00:00:00 00:00:00 [facility] 2020-04-28 2020-04-28 Outpatient STLMLC STLMLC [id number] Common 00:00:00 00:00:00 [facility] 2020-04-23 2020-04-23 Outpatient STLMLC STLMLC [id number] Common 00:00:00 00:00:00 [facility] 2020-04-10 2020-04-10 Outpatient STLMLC STLMLC [id number] Common 00:00:00 00:00:00 [facility] 2020-03-31 2020-03-31 Outpatient STLMLC STLMLC [id number] Common 00:00:00 00:00:00 [facility] 2020-03-17 2020-03-17 Outpatient STLMLC STLMLC [id number] Common 00:00:00 00:00:00 [facility] 2020-03-12 2020-03-12 Outpatient STLMLC STLMLC [id number] Common 00:00:00 00:00:00 [facility] 2020-03-10 2020-03-10 Outpatient STLMLC STLMLC [id number] Common 00:00:00 00:00:00 [facility] 2020-03-05 2020-03-05 Outpatient STLMLC STLMLC [id number] Common 00:00:00 00:00:00 [facility] 2019-10-29 2019-10-29 [id number] Common 08:00:00 08:00:[address] [facility] 2019-10-17 2019-10-17 [facility] [id number] Common 15:27:00 15:27:[address] [employer] [address] [facility] 2019-05-22 2019-05-22 [facility] [id number] Common 09:51:00 09:51:[address] [facility] [address] [facility] 2019-05-20 2019-05-20 [facility] [id number] Common 08:00:00 08:00:[address] [facility] 2019-04-23 2019-04-23 App[facility]men [facility] [id number] [place] 11:30:00 11:30:00 t; FARNAZ GONZALEZ M.D. - [facility]-03-14 2019-03-14 Appointmen [facility] [id number] [place] 14:30:00 14:30:00 t; FARNAZ GONZALEZ M.D. - [facility] 2019-03-12 2019-03-12 [facility] [id number] Common 14:00:00 14:00:[address] [facility] [address] [facility] 2018-12-03 2018-12-03 [facility] [id number] Common 08:00:00 08:00:[address] [facility] [address] [facility] 2018-09-17 2018-09-17 [facility] [id number] Common 08:00:00 08:00:[address] [facility] [address] [facility] 2018-08-22 2018-08-22 [facility] [id number] Common 00:07:00 00:07:[address] [facility] 2018-08-21 2018-08-21 [facility] [id number] Common 14:20:00 14:20:[address] [facility] 2018-07-02 2018-07-02 [facility] [id number] Common 14:39:00 14:39:[address] [facility] 2018-06-25 2018-06-25 [facility] [id number] Common 08:20:00 08:20:[address] [facility] 2017-10-17 2017-10-17 [facility] [id number] Common 08:33:00 08:33:[address] [facility] 2017-10-16 2017-10-16 [facility] [id number] Common 15:30:00 15:30:[address] [facility] 2017-10-04 2017-10-04 [facility] [id number] Common 09:23:00 09:23:[address] [facility] 2017-07-06 2017-07-06 [facility] [id number] Common 00:08:00 00:08:[address] [facility] 2017-07-05 2017-07-05 [facility] [id number] Common 08:30:00 08:30:[address] [facility] Results Test Description Test Time Test Comments Results Result Sour e Comments [U] XRAY SPINE 2019-03-14 [facility] CERVICAL 2 OR 3 13:03:00 acquired, not [id number] [id number] reported on this accession number. [U] XRAY SPINE 2019-03-14 [facility] LUMBOSACRAL 2 OR 3 13:03:00 acquired, not VWS [id number] reported on this accession number.
[2022-05-13 12:19] LABS: SARS-COV-2 RT PCR POSITIVE (NEGATIVE)
--- NOTE | 2022-05-13 13:22 | RAD REPORT ---
EXAM DESCRIPTION: RAD - Chest Single View - 05/13/2022 12:58 pm CLINICAL HISTORY: Cough;Congestion Chest pain. COMPARISON: Chest Single View dated 12/07/2021; Chest Pa And Lat (2 Views) dated 01/27/2017 FINDINGS: Portable technique limits examination quality. The lungs are grossly clear. The heart is normal in size. No displaced fractures.Prominent levoscolio sis upper thoracic spine. Dual lead pacer device noted. IMPRESSION: No acute intrathoracic process suspected.
--- NOTE | 2022-05-13 13:29 | EDPHYS ---
Physician Documentation [facility] Name: Rodrigo Nguyen Age: 67 yrs Sex: Male : 1955 Arrival Date: 05/13/2022 Time: : Bed DIS4 Private MD: Corinne Hermanh ED Physician Francisco Santiago Historical: - Allergies: 05/13 11:28 No Known Allergies; hb - PMHx: 11:28 cardiac stents; CHF; COPD; hb - Immunization history:: Adult Immunizations up to date. - Social history:: Smoking status: Patient denies any tobacco usage or history of. Vital Signs: 11: BP 174 / 105; Pulse 77; Resp 24; Temp 99.2(TE); Pulse Ox 98% on R/A; hb MDM: 11:21 Patient medically screened. kb 05/13 11:29 Order name: COVID-19/FLU A+B; Complete Time: 12:20 kb 05/13 11:29 Order name: Chest Single View XRAY; Complete Time: 13:23 kb Administered Medications: No medications were administered Disposition Summary: 05/13/22 13:28 Discharge Ordered Location: Home kb Condition: Stable kb Diagnosis - SARS-associated coronavirus as the cause of diseases classified elsewhere kb Followup: kb - With: Emergency Department - When: As needed - Reason: Worsening of condition Followup: kb - With: Private Physician - When: 2 - 3 days - Reason: Recheck today's complaints, Continuance of care, Re-evaluation by your physician Discharge Instructions: - Discharge Summary Sheet kb - COVID-19 kb - Viral Illness, Adult kb Forms: - Medication Reconciliation Form kb - Thank You Letter kb - Antibiotic Education kb - Prescription Opioid Use kb Prescriptions: - Tessalon Perles 100 mg Oral Capsule - take 1 capsule by ORAL route every 8 hours As needed; 15 capsule; Refills: 0, kb Product Selection Permitted Signatures: Dispatcher [employer] Reema Boucher FNP-C FNP-Danelle Sunshine, RN RN
--- NOTE | 2022-05-13 13:29 | ER ---
Nurse's Notes [facility] Name: Rodrigo Nguyen Age: 67 yrs Sex: Male : 1955 Arrival Date: 05/13/2022 Time: : Bed DIS4 Private MD: Raphael Herman Diagnosis: SARS-associated coronavirus as the cause of diseases classified elsewhere Presentation: 05/13 11:26 Chief complaint: Cough, congestion, diarrhea, and SOB x 3 days. Coronavirus screen: hb Client presents with at least one sign or symptom that may indicate coronavirus-19. Standard/surgical mask placed on the client. Provider contacted for isolation considerations. Ebola Screen: No symptoms or risks identified at this time. Initial Sepsis Screen: Does the patient meet any 2 criteria? No. Patient's initial sepsis screen is negative. Does the patient have a suspected source of infection? No. Patient's initial sepsis screen is negative. Risk Assessment: Do you want to hurt yourself or someone else? Patient reports no desire to harm self or others. Onset of symptoms was May 10, 2022. 11:26 Method Of Arrival: Ambulatory 11:28 Acuity: MAYANK 4 hb Historical: - Allergies: 11:28 No Known Allergies; hb - PMHx: 11:28 cardiac stents; CHF; COPD; hb - Immunization history:: Adult Immunizations up to date. - Social history:: Smoking status: Patient denies any tobacco usage or history of. Screenin:27 [facility] ED Fall Risk Assessment (Adult) History of falling in the last 3 months, ss including since admission No falls in past 3 months (0 pts). Abuse screen: Denies threats or abuse. Denies injuries from another. Nutritional screening: No deficits noted. Tuberculosis screening: Never had TB. Assessment: 13:27 General: Appears in no apparent distress. comfortable, Reports feeling ill for 2-3 ss days. Neuro: Level of Consciousness is awake, alert, obeys commands, Oriented to person, place, time, situation. Cardiovascular: Capillary refill < 3 seconds is brisk in bilateral fingers. Respiratory: Airway is patent Respiratory effort is even, unlabored, Respiratory pattern is regular, symmetrical. Derm: Skin is intact, is healthy with good turgor, Skin is pink, warm \T\ dry. normal. Vital Signs: 11:26 BP 174 / 105; Pulse 77; Resp 24; Temp 99.2(TE); Pulse Ox 98% on R/A; hb ED Course: 11:17 Patient arrived in ED. mr 11:18 Raphael Herman DO is Private Physician. mr 11:21 Reema Gunn FNP-C is [facility]. kb 11:21 Francisco Santiago MD is Attending Physician. kb 11:28 Triage completed. hb 11:28 Arm band placed on. hb 11:40 COVID-19/FLU A+B Sent. hb 12:59 Chest Single View XRAY In Process Unspecified. EDMS 13:27 Jacey Montana, RN is Primary Nurse. ss 13:27 Patient has correct armband on for positive identification. Bed in low position. ss 13:27 No provider procedures requiring assistance completed. Patient did not have IV access ss during this emergency room visit. Administered Medications: No medications were administered Medication: 13:27 VIS not applicable for this client. ss Outcome: 13:28 Discharge ordered by . kb Signatures: Dispatcher [employer] EDMS Reema Gunn FNP-C DANCE DIRECTOR-Daren Madai Diaz mr Jacey Montana, RN RN ss Danelle Santo, MC RN hb Corrections: (The following items were deleted from the chart) 11:28 11:26 BP 177 / 117; Pulse 77bpm; Resp 24bpm; Pulse Ox 98% RA; Temp 99.2F Temporal; hb hb
[2022-05-13 13:46] VITALS: BP 174/105; TEMP 99.2; O2SAT 98
== END 2022-05-13 13:40 | disposition home or self-care (01) ==
LOC: ER 11:15
DX: U07.1 COVID-19 (principal); I50.9 Heart failure, unspecified; Z95.818 Presence of other cardiac implants and grafts
CPT/HCPCS: 0240U; 71045; 99283